=== PATIENT | female | born 2000 | race Caucasian/White ===

== ENCOUNTER 2020-12-28 07:23 | Emergency (ER) | payer OTHER ==
[~2020-12-28] VITALS: Ht 182 cm; Wt 85.0 kg
[2020-12-28 08:03] VITALS: TEMP 97.8
[2020-12-28 09:04] LABS: COLLECTION METHOD CLEAN CATCH
[2020-12-28 09:06] LABS: HEMOGLOBIN 13.8 g/dl (12.0-15.0); MEAN CELL VOLUME 90 fl (80.0-95.0); MEAN CORPUSCULAR HEMOGLOBIN 30 pg (26.0-32.0); MEAN CORPUSCULAR HGB CONC 34 g/dl (33.0-37.0); MEAN PLATELET VOLUME 10.4 fl (7.4-10.4); PLATELET COUNT 229 K/mm3 (130-400); RED BLOOD COUNT 4.57 M/mm3 (4.10-5.30); REDCELL DISTRIBUTION WIDTH-CV 11.7 % (11.5-14.5)
[2020-12-28 09:10] LABS: PH 5 (5-8); SQUAMOUS EPITHELIAL 0-2 /hpf; URINE APPEARANCE Clear; URINE BACTERIA Rare /hpf; URINE BILIRUBIN Negative (NEGATIVE); URINE BLOOD Negative (NEGATIVE); URINE COLOR Yellow; URINE GLUCOSE Negative (NEGATIVE); URINE KETONE 1+ (NEGATIVE); URINE LEUKOCYTE ESTERASE Negative (NEGATIVE); URINE NITRATE Negative (NEGATIVE); URINE PROTEIN(semi-quant) Negative (NEGATIVE); URINE RBC 0-2 /hpf; URINE UROBILINOGEN Negative (NEGATIVE)
[2020-12-28 09:16] LABS: ALBUMIN 4.9 gm/dL (3.5-5.0); BILIRUBIN,TOTAL 1.4 mg/dL (0.0-1.0); CALCIUM 9.5 mg/dL (8.4-10.2); CREATININE, serum 0.78 (0.52-1.25); POTASSIUM 4.1 mmol/L (3.4-5.0)
[2020-12-28 09:29] LABS: BAND 2 % (0-10); LYMPHOCYTE 4 % (20.0-51.0); NEUTROPHILS 88 % (42.0-75.2); PLATELET ESTIMATE NORMAL (NORMAL)
[2020-12-28] MEDS ORDERED: DOXYCYCLINE 10100 MG PO ×2 (12:45→12:46)
[2020-12-28] MEDS ORDERED: ZOFRAN ODT4 MG PO (12:46)
[2020-12-28 14:11] VITALS: BP 114/70; PULSE 65
== END 2020-12-28 13:19 | disposition home or self-care (01) ==
LOC: COL.ER 07:24
PROVIDERS: Emergency Medicine
DX: N73.0 Acute parametritis and pelvic cellulitis (principal); Z32.02 Encounter for pregnancy test, result negative
CPT/HCPCS: J0696; J1885; J2405; J7030; Q9967